=== PATIENT | female | born 2000 | race Caucasian/White ===

== ENCOUNTER 2019-03-05 12:21 | Emergency (ER) | payer OTHER ==
[~2019-03-05] VITALS: Ht 154.9 cm; Wt 77.6 kg
[2019-03-05 12:26] VITALS: Ht 154.9 cm; Wt 77.6 kg
--- NOTE | 2019-03-05 13:06 | ERD ---
ER Documentation Chief Complaint Chief Complaint clinic ref: +preg test, r/o ectopic. LMP 01/21/19. + cramp, -VB. HPI Very pleasant 18-year-old female who is a G3, P1 with a history of an elective miscarriage with oral abortifacient who presents to the emergency room for evaluation. The patient took a recent test and is been having abdominal cramping without bleeding. The pain is moderate, sharp and feels slightly worse than her menstrual period. She denies any fever or chills, dysuria or frequency. She does have some mild nonbloody nonbilious emesis and mild nausea. Patient was sent by an urgent care for further evaluation and to rule out ectopic . ROS All systems reviewed and are negative except as per history of present illness. Medications Home Meds Active Scripts Ondansetron (Ondansetron Odt) 4 Mg Tab.rapdis, 4 MG PO Q6H PRN for NAUSEA AND/OR VOMITING, #20 TAB Prov:TANIKA APODACA MD 03/05/19 Allergies Allergies: Coded Allergies: No Known Allergy (Unverified , 03/05/19) FmHx Family History: No diabetes Physical Exam Vitals Vital Signs Date Temp Pulse Resp B/P (MAP) Pulse Ox O2 O2 Flow FiO2 Time Delivery Rate 03/05/19 98.7 92 16 131/64 97 12:26 (86) Physical Exam General: Well developed, well nourished, no acute distress Head: Normocephalic, atraumatic. Eyes: Pupils equally reactive, EOM intact ENT: Moist mucous membranes Neck: Supple, no lymphadenopathy Respiratory: Lungs clear bilaterally, no distress Cardiovascular: RRR, no murmurs, rubs, or gallops Abdominal: Soft, non-tender, non-distended, no peritoneal signs : Deferred MSK: No edema, no unilateral swelling, 5/5 strength Neurologic: Alert and oriented, moving all extremities, normal speech, no focal weakness, no cerebellar signs Skin: No rash Psych: Normal mood Result Diagram: 03/05/19 1311 Results 24 hrs Laboratory Tests Test 03/05/19 13:11 White Blood Count 11.6 10^3/ul Red Blood Count 4.45 10^6/ul Hemoglobin 12.6 g/dl Hematocrit 36.9 % Mean Corpuscular Volume 82.9 fl Mean Corpuscular Hemoglobin 28.3 pg Mean Corpuscular Hemoglobin Concent 34.1 g/dl Red Cell Distribution Width 12.9 % Platelet Count 282 10^3/UL Mean Platelet Volume 9.1 fl Immature Granulocytes % 0.400 % Neutrophils % 69.6 % Lymphocytes % 21.1 % Monocytes % 6.0 % Eosinophils % 2.4 % Basophils % 0.5 % Nucleated Red Blood Cells % 0.0 /100WBC Immature Granulocytes # 0.050 10^3/ul Neutrophils # 8.1 10^3/ul Lymphocytes # 2.4 10^3/ul Monocytes # 0.7 10^3/ul Eosinophils # 0.3 10^3/ul Basophils # 0.1 10^3/ul Nucleated Red Blood Cells # 0.0 10^3/ul Urine Color YELLOW Urine Clarity CLEAR Urine pH 6.0 Urine Specific [place] 1.023 Urine Ketones NEGATIVE mg/dL Urine Nitrite NEGATIVE mg/dL Urine Bilirubin NEGATIVE mg/dL Urine Urobilinogen NEGATIVE mg/dL Urine Leukocyte Esterase NEGATIVE [place]/ul Urine Hemoglobin NEGATIVE mg/dL Urine Glucose NEGATIVE mg/dL Urine Total Protein NEGATIVE mg/dl Beta HCG, Quantitative 65030.0 mIU/ml Procedures/MDM EKG, MONITORS, & DIAGNOSTIC IMAGING: Pelvic ultrasound: IMPRESSION: Possible early intrauterine at 5 weeks and 4 days. No pole or yolk sac is yet visualized. Close followup ultrasound and hCG is recommended. LAB INTERPRETATION: Serum hC,000 Rh status: B positive MEDICAL DECISION MAKING: The patient's symptoms are most consistent with acute threatened miscarriage versus normal early . She exhibits no signs or symptoms concerning for acute ectopic however this needs to be evaluated here in the emergency room and be ruled out. In addition I doubt other acute intra-abdominal process such as ovarian cyst, ovarian torsion, acute appendicitis, colitis, kidney s tone, acute pancreatitis or acute cholecystitis. The patient will require further evaluation, laboratory testing and diagnostic imaging to evaluate and rule out acute ectopic . Patient will also require prompt outpatient [employer] follow-up. We discussed this at the bedside. We had an in-depth conversation regarding the diagnosis of threatened miscarriage, the prevalence of this process, the expected management as well as return precautions. ER COURSE: * There is a subtle mismatch between the patient's hCG and ultrasound findings. I discussed the case with on-call [employer] provider, Dr. brumfield who recommends repeat hCG and ultrasound in 48 hours. The patient's symptoms are improved. The patient can be safely discharged. * She is asking for Zofran for discharge. The patient was advised to try vitamin B6 prior to using Zofran but discussed this with her primary care physician. Prescription was provided. I kept the patient and/or family informed of laboratory and diagnostic imaging results throughout the emergency room course. DISPOSITION PLAN: We discussed follow up with the patient's primary care doctor within 24 to 48 hours as needed. We also discussed return to the emergency room for worsening symptoms or worsening condition. Close outpatient [employer] follow-up for repeat hCG value in 2-3 days and ultrasound as needed. Discharge medications: Zofran Departure Diagnosis: Primary Impression: Pelvic pain complicating Trimester: first trimester Qualified Codes: O26.891 - Other specified related conditions, first trimester; R10.2 - Pelvic and perineal pain Condition: Stable TANIKA APODACA MD Mar 05, 2019 13:06
[2019-03-05] MEDS ORDERED: ONDA4TAB14 PO (14:52)
[2019-03-05 15:00] VITALS: BP 128/84; PULSE 84; RESP 18
== END 2019-03-05 15:00 | disposition home or self-care (01) ==
LOC: FTE 12:21
DX: O26.891 Other specified pregnancy related conditions, first trimester (principal); R10.2 Pelvic and perineal pain; Z3A.01 Less than 8 weeks gestation of pregnancy
CPT/HCPCS: 36415; 76801; 81003; 84702; 85025; 86900; 86901; Z7502